=== PATIENT | male | born 1940 | race Caucasian/White ===

== ENCOUNTER 2016-08-11 19:13 | Emergency (ER) | payer OTHER ==
[2016-08-11 19:26] VITALS: RESP 16
[2016-08-11] MEDS ORDERED: HYDROCOD/APAP 5/325 PREPACK#6 BTL TAKEHOME ONE (21:11)
--- NOTE | 2016-08-11 21:11 | EDPHY ---
H & P Stated Complaint: trip and fall trail running l sided rib pain HPI/ROS: Chief complaint: Trip and fall injuring left chest wall History of present illness: This is a 75-year-old male who presents to the emergency department for evaluation after sustaining a trip and fall injuring his left chest wall. Earlier this afternoon, a few hours ago, he was hiking when he tripped and fell striking the left chest wall against the ground. Since then he has had a persistent soreness. He has noted some discomfort on palpation of the chest wall as well. He denies specific alleviating factors. He denies other associated signs or symptoms including no cough, no trouble breathing. He denies trauma to other parts of the body including the head, neck , back, abdomen, pelvis or extremities. - Personal History Current Tetanus/Diphtheria Vaccine: Yes Current Tetanus Diphtheria and Acellular Pertussis (TDAP): Yes Tetanus Vaccine Date: 12-31-11 - Medical/Surgical History Hx Asthma: No Hx Chronic Respiratory Disease: No Hx Diabetes: No Hx Cardiac Disease: No Hx Renal Disease: No Hx Cirrhosis: No Hx Alcoholism: No Hx HIV/AIDS: No Hx Splenectomy or Spleen Trauma: No Other PMH: spinal fusion, L2-5, cervical fusion c2-6, exercise induced asthma, left knee replacement,htn, PE - Social History Smoking Status: Never smoked - Physical Exam Exam: General Appearance: Alert, nontoxic Eyes: PERRLA Respiratory: Lungs clear to auscultation bilaterally Cardiac: Regular rate and rhythm. Gastrointestinal: Bowel sounds are normal. Abdomen is soft, nondistended, nontender to palpation. Neurological: Alert and oriented x4. Strength and sensation intact and symmetrical. Ambulating well. Skin: No lesions consistent with trauma on inspection. Musculoskeletal: Head is normocephalic, atraumatic. The spine is nontender to palpation. There is significant tenderness over the left upper anterolateral aspect of the chest wall. No crepitus, bony deformity or subcutaneous air is appreciated. The rest of the chest wall is unremarkable. Patient is moving extremities well. Ambulating well. Constitutional: Initial Vital Signs Temperature (C) 36.4 C 08/11/16 19:22 Heart Rate 50 L 08/11/16 19:22 Respiratory Rate 16 08/11/16 19:22 Blood Pressure 177/78 H 08/11/16 19:22 O2 Sat (%) 98 08/11/16 19:22 O2 Delivery Mode Room Air Allergies/Adverse Reactions: No Known Allergies Allergy (Unverified 02/23/15 16:03) Home Medications: Medication Instructions Recorded Atorvastatin Calcium [Lipitor 40 40 mg PO HS 05/26/12 mg (*)] Pregabalin [LYRICA] 100 mg PO BID 05/26/12 Cholecalciferol Vit D3 [Vitamin D3 1,000 units PO DAILY 10/24/13 (*)] LISINOPRIL/HYDROCHLOROTHIAZIDE 1 each PO DAILY 01/30/15 [PRINZIDE 20-25 MG TABLET] amLODIPine BESYLATE [Norvasc 2.5 2.5 mg PO DAILY 01/30/15 mg (*)] Colchicine [Colcrys] 0.6 mg PO DAILY 03/26/15 Nabumetone [Relafen 500 mg (*)] 500 mg PO BIDMEAL 08/11/16 Medical Decision Making ED Course/Re-evaluation: Patient is seen under the supervision of my secondary supervising physician Dr. Sudhir Wilkinson. Patient presents to the emergency department for evaluation of trauma to his left chest wall. On presentation patient is nontoxic. Vital signs are stable. Physical exam does reveal tenderness to palpation over the chest wall. The rest of his physical exam is benign, by history and physical exam no evidence of trauma to other parts of the body. Chest x-ray is negative. I have discussed with him this could be a contusion versus is a bony fracture not seen on x-ray. I do believe he is appropriate for outpatient management. Home management is discussed including pain management and the use of incentive spirometry. He is asked to closely follow up with his primary care doctor for recheck. Return precautions are given. Patient voiced understanding and agreement with plan. Differential Diagnosis: Included but not limited to contusion, bony fracture, pneumo or hemothorax - Data Points Medications Given: Discontinued Medications Hydrocodone Bitart/Acetaminophen ([place] 5/325mg Prepack#6) 1 btl TAKEHOME EDNOW ONE Stop: 08/11/16 21:12 Last Admin: 08/11/16 21:22 Dose: 1 btl Departure - Departure Disposition: Home, Routine, Self-Care Clinical Impression: Chest wall pain Condition: Good Instructions: Hydrocodone/Acetaminophen (By mouth), How to Use an Incentive Spirometer (ED), Chest Wall Pain (ED) Additional Instructions: Follow-up with your primary care doctor in the next 2-3 days for recheck Use incentive spirometry as discussed In regards to pain control see the following: Use ibuprofen 400 mg [3] times a day for the next 2-3 days for pain In addition You have been prescribed [[place]] for pain. [[place]] contains Tylenol, do not take extra Tylenol/acetaminophen/Apap with it. It is sedating. If symptoms worsen or new symptoms develop return immediately to the emergency room Referrals: Bernard Osuna MD [Primary Care Provider] - As per Instructions
[2016-08-11 21:22] VITALS: BP 133/74; PULSE 66; TEMP 97.9; O2SAT 96
== END 2016-08-11 21:23 | disposition home or self-care (01) ==
DX: S29.9XXA Unspecified injury of thorax, initial encounter (principal); I10 Essential (primary) hypertension; W01.198A Fall on same level from slipping, tripping and stumbling with subsequent striking against other object, initial encounter; Y99.8 Other external cause status; Y93.01 Activity, walking, marching and hiking